=== PATIENT | female | born 1995 | race Caucasian/White ===

== ENCOUNTER 2017-05-19 09:44 | Emergency (ER) | payer BC ==
[~2017-05-19] VITALS: Ht 154.9 cm; Wt 66.5 kg
[~2017-05-19 09:44] MED LIST: ALBUAER19 INH; BCPILLS PO; CLR10 PO
[2017-05-19 09:53] VITALS: Ht 154.9 cm; Wt 66.5 kg
[2017-05-19] MEDS ORDERED: SODIUM CHLORIDE 0.9% 1000ML 1,000 ML IV STA ×3 (10:11→13:13)
[2017-05-19] MEDS ORDERED: ONDANSETRON 8 MG/54 ML D5W IV STA (10:19)
[2017-05-19] MEDS ORDERED: ONDANSETRON INJ 2 MG/ML 2 ML VIAL IV STA (10:21)
[2017-05-19 10:31] LABS: BASO % 0.1 %; BASO ABS # 0.01 K/uL (0-0.2); COMPLETE YES; EOS % 1.7 %; HEMATOCRIT 41.3 % (37-47); IG% 0.2 %; LYMPH % 6.2 %; LYMPH ABS # 0.61 K/uL (1.2-3.4); MEAN CELL VOLUME 91.4 fL (80-100); MEAN CORPUSCULAR HEMOGLOBIN 31.4 pg (25-34); MEAN CORPUSCULAR HGB CONC 34.4 g/dl (32-36); MONO % 6.7 %; NEUT % 85.1 %; PLATELET COUNT 240 K/uL (130-400); RED BLOOD COUNT 4.52 M/uL (4.2-5.4); WHITE BLOOD COUNT 9.86 K/uL (4.8-10.8)
[2017-05-19 10:53] LABS: BUN/CREATININE RATIO 17.7 (10-20); CALCIUM 9.1 mg/dl (8.5-10.1); CREATININE 0.67 mg/dl (0.60-1.20); POTASSIUM 3.5 mmol/L (3.5-5.1)
[2017-05-19 10:56] LABS: PREG INTERNAL NEGATIVE QC NEG CLEAR BACKGROUND; PREG INTERNAL POSITIVE QC POS CONTROL LINE
[2017-05-19 11:14] LABS: URINE APPEARANCE CLEAR (CLEAR); URINE BILIRUBIN NEG (NEG); URINE COLOR YELLOW; URINE NITRITE NEG (NEG); URINE SPECIFIC GRAVITY 1.023 (1.000-1.030); UROBILINOGEN NEG (NEG); ZZUR CULT IF INDIC CLEAN CATCH NO
[2017-05-19] MEDS ORDERED: ACETAMINOPHEN 500 MG TAB PO STA (11:18)
[2017-05-19 11:24] LABS: MANUAL MICROSCOPIC REQUIRED? NO; REVIEW REQ? NO
[2017-05-19] MEDS ORDERED: ONDA4TAB46 PO (11:29)
[2017-05-19] MEDS ORDERED: PRVHFAIN INH (11:29)
[2017-05-19 12:45] VITALS: TEMP 37.3
[2017-05-19 15:14] VITALS: BP 101/60; PULSE 106; O2SAT 98
--- NOTE | 2017-05-19 17:08 | EMERGENCY ROOM VISIT NOTE ---
History Report prepared by Mohit: B[place] Under the Supervision of: Dr. Oh Jameson M.D. First contact with patient: 10:11 Chief Complaint: GI ASSESSMENT Stated Complaint: THROWING UP,DIARRHEA,BLOOD IN STOOL History of Present Illness The patient is a 21 year old female who presents to the Emergency Room with complaints of a worsening illness that started last night. The patient is noted to be shaking due to being nervous. She says that she has had episodes of vomiting and diarrhea, and the diarrhea became bloody this morning. The patient notes that she last vomited this morning around 8 hours ago. She says that she is not in pain but she adds that she is very nauseous. The patient states that she took her prescribed anti-nausea medication around 2 hours ago. She says that she has not eaten anything unusual recently, and she has no known recent sick contacts. Pt denies LOC, headache, fevers, chills, diaphoresis, visual changes, neck pain, chest pain, breathing difficulties, abdominal pain, back pain, melena, urinary symptoms, numbness, weakness, lymphadenopathy, rash, or other complaints. Source of History: patient Onset: Last night Position: other (global - illness) Timing: worsening Modifying Factors (Relieving): other (anti-nausea medication) Associated Symptoms: + nausea, + vomiting, + hematochezia, + diarrhea Note: Associated symptoms: Shaking. Review of Systems See HPI for pertinent positives and negatives. A total of ten systems were reviewed and were otherwise negative. Past Medical & Surgical Medical Problems: (1) Asthma (2) Bronchitis (3) Pneumonia (4) Stomach problems Surgical Problems: (1) S/P wisdom tooth extraction Family History Hypertension Social History Smoking Status: Never Smoker Alcohol Use: none Marital Status: in relationship Housing Status: lives with significant other Occupation Status: [employer] student Current/Historical Medications Scheduled Control Pills ( Control Pills), 1 TAB PO DAILY Loratadine (Claritin), 10 MG PO DAILY Scheduled PRN Albuterol (Ventolin Hfa), 2 PUFFS INH Q4 PRN for Shortness of Breath Ondansetron Hcl (Zofran), 4 MG PO Q6 PRN for Nausea Allergies Coded Allergies: Cephalexin (Unverified Allergy, Severe, BREAKOUT, 05/19/17) Physical Exam Vital Signs Date Time Temp Pulse Resp B/P (MAP) Pulse Ox O2 Delivery O2 Flow Rate FiO2 05/19/17 15:14 106 101/60 98 05/19/17 14:04 91 05/19/17 12:45 37.3 100 18 103/51 100 Room Air 05/19/17 11:12 38.0 101 16 98/53 05/19/17 10:24 99 05/19/17 09:53 36.8 106 20 119/73 96 Room Air Physical Exam GENERAL: Awake, alert, anxious-appearing, in no distress HENT: Normocephalic, atraumatic. Oropharynx unremarkable. EYES: Normal conjunctiva. Sclera non-icteric. NECK: Supple. No nuchal rigidity. FROM. No JVD. RESPIRATORY: Clear to auscultation. CARDIAC: Regular rate, normal rhythm. Extremities warm and well perfused. Pulses equal. ABDOMEN: Soft, non-distended. No tenderness to palpation. No rebound or guarding. No masses. RECTAL: Deferred. MUSCULOSKELETAL: Chest examination reveals no tenderness. The back is symmetrical on inspection without obvious abnormality. There is no CVA tenderness to palpation. No joint edema. LOWER EXTREMITIES: Calves are equal size bilaterally and non-tender. No edema. No discoloration. NEURO: Normal sensorium. No sensory or motor deficits noted. SKIN: No rash or jaundice noted. Medical Decision & Procedures Laboratory Results 05/19/17 10:10 Red Blood Count 4.52, Mean Corpuscular Volume 91.4, Mean Corpuscular Hemoglobin 31.4, Mean Corpuscular Hemoglobin Concent 34.4, Mean Platelet Volume 10.0, Neutrophils (%) (Auto) 85.1, Lymphocytes (%) (Auto) 6.2, Monocytes (%) (Auto) 6.7, Eosinophils (%) (Auto) 1.7, Basophils (%) (Auto) 0.1, Neutrophils # (Auto) 8.39, Lymphocytes # (Auto) 0.61, Monocytes # (Auto) 0.66, Eosinophils # (Auto) 0.17, Basophils # (Auto) 0.01 05/19/17 10:10 Test 05/19/17 10:10 05/19/17 10:55 White Blood Count 9.86 K/uL (4.8-10.8) Red Blood Count 4.52 M/uL (4.2-5.4) Hemoglobin 14.2 g/dL (12.0-16.0) Hematocrit 41.3 % (37-47) Mean Corpuscular Volume 91.4 fL (80-100) Mean Corpuscular Hemoglobin 31.4 pg (25-34) Mean Corpuscular Hemoglobin Concent 34.4 g/dl (32-36) Platelet Count 240 K/uL (130-400) Mean Platelet Volume 10.0 fL (7.4-10.4) Neutrophils (%) (Auto) 85.1 % Lymphocytes (%) (Auto) 6.2 % Monocytes (%) (Auto) 6.7 % Eosinophils (%) (Auto) 1.7 % Basophils (%) (Auto) 0.1 % Neutrophils # (Auto) 8.39 K/uL (1.4-6.5) Lymphocytes # (Auto) 0.61 K/uL (1.2-3.4) Monocytes # (Auto) 0.66 K/uL (0.11-0.59) Eosinophils # (Auto) 0.17 K/uL (0-0.5) Basophils # (Auto) 0.01 K/uL (0-0.2) RDW Standard Deviation 42.3 fL (36.4-46.3) RDW Coefficient of Variation 12.7 % (11.5-14.5) Immature Granulocyte % (Auto) 0.2 % Immature Granulocyte # (Auto) 0.02 K/uL (0.00-0.02) Anion Gap 10.0 mmol/L (3-11) Est Creatinine Clear Calc Drug Dose 113.9 ml/min Estimated GFR () 143.6 Estimated GFR (Non- 123.9 BUN/Creatinine Ratio 17.7 (10-20) Calcium Level 9.1 mg/dl (8.5-10.1) Total Bilirubin 1.0 mg/dl (0.2-1) Direct Bilirubin 0.2 mg/dl (0-0.2) Aspartate Amino Transf (AST/SGOT) 14 U/L (15-37) Alanine Aminotransferase (ALT/SGPT) 19 U/L (12-78) Alkaline Phosphatase 56 U/L (45-117) Total Protein 8.0 gm/dl (6.4-8.2) Albumin 4.2 gm/dl (3.4-5.0) Lipase 74 U/L (73-393) Human Chorionic Gonadotropin, Qual NEG (NEG) Urine Color YELLOW Urine Appearance CLEAR (CLEAR) Urine pH 5.0 (4.5-7.5) Urine Specific [place] 1.023 (1.000-1.030) Urine Protein NEG (NEG) Urine Glucose (UA) NEG (NEG) Urine Ketones 2+ (NEG) Urine Occult Blood NEG (NEG) Urine Nitrite NEG (NEG) Urine Bilirubin NEG (NEG) Urine Urobilinogen NEG (NEG) Urine Leukocyte Esterase NEG (NEG) Date/Time Source Procedure Growth Status 05/19/17 10:55 Stool C.difficile Toxin B Gene (PCR) - Final No C. difficile toxin B gene detected Complete Laboratory results reviewed by me Medications Administered Medications (Trade) Dose Ordered Sig/Rodri Route Start Time Stop Time Status Last Admin Dose Admin Sodium Chloride 1,000 ml @ 125 mls/hr Q8H STAT IV 05/19/17 10:11 05/19/17 15:37 DC 05/19/17 11:16 125 MLS/HR Sodium Chloride 1,000 ml @ 999 mls/hr Q1H1M STAT IV 05/19/17 10:11 05/19/17 11:11 DC 05/19/17 10:19 999 MLS/HR Ondansetron HCl (Zofran Inj) 4 mg NOW STAT IV 05/19/17 10:21 05/19/17 10:22 DC 05/19/17 10:29 4 MG Acetaminophen (Tylenol Tab) 1,000 mg NOW STAT PO 05/19/17 11:18 05/19/17 11:19 DC 05/19/17 11:26 1,000 MG Sodium Chloride 1,000 ml @ 999 mls/hr Q1H1M STAT IV 05/19/17 13:13 05/19/17 14:13 DC 05/19/17 13:16 999 MLS/HR ED Course 1011: Ordered NSS 1000 ml @ 999 mls/hr IV, NSS 1000 ml 125 mls/hr IV. 1018: The patient was evaluated in room B8. A complete history and physical exam was performed. 1021: Ordered Zofran Inj 4 mg IV. 1118: Ordered Tylenol Tab 1000 mg PO. 1123: I reevaluated the patient and she is doing well. She is updated. 1418: I discussed the patient with Dr. Mehul STERLING GI - he recommended outpatient follow-up. 1440: I reevaluated the patient and she is feeling well and will follow-up in the office. Discussed results and discharge instructions: she verbalized understanding and agreement. The patient is ready for discharge. Medical Decision Triage Nursing notes reviewed. The patient's presentation and history were concerning for vomiting, diarrhea and bloody stool. Etiologies such as gastroenteritis, food borne illness, infectious diarrhea, infections, obstruction, pancreatitis, appendicitis, diverticulitis, inflammatory bowel disease, GI bleed, biliary pathology, toxicologic as well as others were entertained. The patient was evaluated. She was doing relatively well. She was somewhat anxious but had a benign abdominal examination. Blood work was obtained. The patient was hydrated. She was given IV Zofran. She felt much better with this. The patient had no further vomiting. She did have a stool sample obtained and this was sent. Negative for C. difficile. Culture pending. The patient had an unremarkable CBC, chemistry panel, LFTs, and lipase. She is not . Her urinalysis is unremarkable. The patient was hydrated. She received 2 L of normal saline. She is doing well with this. I discussed conservative management with her and close outpatient follow-up. Stool culture results will dictate the need for further treatment at this point in time. The patient is doing very well clinically. I did consult with gastroenterology who agreed with follow-up in the office.I gave my usual and customary discussion regarding this issue. By the evaluation outlined above other emergent etiologies such as those listed in the differential, as well as others, were deemed relatively unlikely. The patient was educated about the findings as listed above. All questions were answered and the patient was pleased with the treatment. Return instructions were outlined and the patient was discharged in stable condition. The patient was referred to GI for follow-up for a recheck of the current condition. Medication Reconcilliation Current Medication List: was personally reviewed by me Blood Pressure Screening Patient's blood pressure: Normal blood pressure Consults Time Called: 1415 Consulting Physician: Dr. Mehul YOON Returned Call: 1418 I discussed the patient with Dr. Mehul STERLING GI - he recommended outpatient follow-up. Impression Primary Impression: Diarrhea Additional Impression: Hematochezia Scribe Attestation The scribe's documentation has been prepared under my direction and personally reviewed by me in its entirety. I confirm that the note above accurately reflects all work, treatment, procedures, and medical decision making performed by me. Departure Information Dispostion Home / Self-Care Referrals Nya Bishop D.O. (PCP) Dilip Andrade MD Patient Instructions [facility] Additional Instructions A stool culture is pending. You should he results from the Emergency Room within 48 hours. If you do not call back to [phone] for results. Ibuprofen(Motrin, Advil) may be used for fever or pain. Use 600mg every six hours as needed. Take with food. Avoid using more than 2400mg in a 24 hour period. Do not use 2400mg per day for more than three consecutive days without physician direction. Prolonged inappropriate use can lead to stomach upset or ulcers. (AND/OR) Acetaminophen(Tylenol) may be used for fever or pain. Use 1000mg every six hours as needed. Avoid using more than 4000mg in a 24 hour period. Continue your Zofran. Rest and drink plenty of fluids as tolerated. Slow sips of water or sports drinks are recommended instead of large amounts all at once. Continue current medications. Once your stomach is settled start with a clear liquid diet (jello, soup broth, etc.) and then advance as tolerated. You should avoid full, heavy meals for about 24 hrs from the time your symptoms resolved. Return to the ER immediately for worsening or persistent abdominal pain, vomiting, fevers, chest pains, difficulty breathing, persistent bloody stools, worsening of your condition, or as needed. Follow up with your primary physician in 2-3 days for a recheck of your current condition. Call [facility] [address] gastroenterology on Saturday morning for a follow-up visit. Tell them you were referred from the Emergency Room. The number for the clinic is listed below under Dr. andrade. Problem Qualifiers
== END 2017-05-19 15:15 | disposition home or self-care (01) ==
LOC: C.EDB 09:46
DX: K92.1 Melena (principal); R19.7 Diarrhea, unspecified; J45.909 Unspecified asthma, uncomplicated; Z87.01 Personal history of pneumonia (recurrent); Z82.49 Family history of ischemic heart disease and other diseases of the circulatory system; Z79.3 Long term (current) use of hormonal contraceptives; Z79.899 Other long term (current) drug therapy

== ENCOUNTER 2017-11-01 12:20 | Emergency (ER) | payer BC ==
[~2017-11-01] VITALS: Ht 154.9 cm; Wt 65.3 kg
[~2017-11-01 12:20] MED LIST changes: -ALBUAER19 INH; +ONDA4TAB46 PO; +PRVHFAIN INH
[2017-11-01 12:23] VITALS: TEMP 36.8; Ht 154.9 cm; Wt 65.3 kg
[2017-11-01] MEDS ORDERED: ALBUT/IPRATROP 3MG/0.5MG NEB 3 ML VIAL ONE (12:30)
[2017-11-01] MEDS ORDERED: METHYLPREDNISOLONE 125 MG VIAL IV STA (12:31)
[2017-11-01] MEDS ORDERED: ALBUT/IPRATROP 3MG/0.5MG NEB 3 ML VIAL INH STA ×2 (12:31→13:36)
[2017-11-01] MEDS ORDERED: LORAZEPAM 2 MG/ML 1 ML VIAL IV STA (12:31)
--- NOTE | 2017-11-01 13:07 | DIAGNOSTIC IMAGING REPORT ---
CHEST ONE VIEW PORTABLE CLINICAL HISTORY: Shortness of breath. COMPARISON STUDY: Chest radiograph April 23, 2012. FINDINGS: Lung volumes are normal. There is no pneumothorax or pleural effusion. There is no consolidation or evidence for pulmonary edema. Cardiac size is normal. Mediastinal contours are normal. IMPRESSION: No acute cardiopulmonary findings. Electronically signed by: Dennis Taylor M.D. 11/01/2017 1:05 PM Dictated Date/Time: 11/01/2017 1:05 PM
[2017-11-01 13:13] LABS: HEMATOCRIT 42.6 % (37-47); MEAN CELL VOLUME 89.3 fL (80-100); MEAN CORPUSCULAR HEMOGLOBIN 31.4 pg (25-34); MEAN CORPUSCULAR HGB CONC 35.2 g/dl (32-36); MEAN PLATELET VOLUME 10.2 fL (7.4-10.4); PLATELET COUNT 311 K/uL (130-400); RED CELL DISTRIBUTION WIDTH CV 12.7 % (11.5-14.5); RED CELL DISTRIBUTION WIDTH SD 41.4 fL (36.4-46.3); WHITE BLOOD COUNT 10.17 K/uL (4.8-10.8)
[2017-11-01 13:32] LABS: CALCIUM 9.8 mg/dl (8.5-10.1); CREATININE 0.77 mg/dl (0.60-1.20); POTASSIUM 3.3 mmol/L (3.5-5.1)
[2017-11-01 13:39] LABS: INFLUENZA B ANTIGEN Neg for Influ B (NEG)
[2017-11-01 13:49] LABS: BASO % 0.2 %; BASO ABS # 0.02 K/uL (0-0.2); EOS % 2.8 %; EOS ABS # 0.28 K/uL (0-0.5); IG# 0.02 K/uL (0.00-0.02); LYMPH % 37.7 %; LYMPH ABS # 3.83 K/uL (1.2-3.4); MONO % 5.4 %; MONO ABS # 0.55 K/uL (0.11-0.59); NEUT % 53.7 %; NEUT ABS # 5.47 K/uL (1.4-6.5)
[2017-11-01] MEDS ORDERED: PRED50TA PO (14:51)
[2017-11-01] MEDS ORDERED: PRVHFAIN INH (15:26)
[2017-11-01 15:38] VITALS: BP 122/75; PULSE 88; O2SAT 98
--- NOTE | 2017-11-01 17:54 | EMERGENCY ROOM VISIT NOTE ---
History Report prepared by Mohit: Walter Higginbotham Under the Supervision of: Dr. Moncho Bates M.D. First contact with patient: 12:28 Chief Complaint: RESPIRATORY PROBLEMS Stated Complaint: ASTHMA ATTACK, CANT BREATH Nursing Triage Summary: triage note: Pt reports "i am having an asthma attack and i can't breathe." History of Present Illness The patient is a 22 year old female who presents to the Emergency Room with complaints of constant shortness of breath beginning a few hours ago. She has a history of asthma and feels that she is having an asthma attack. She has a rescue inhaler at home, but nothing has improved her symptoms. The patient also complains of a cough and chest pain. She notes that she had to be taken to the ICU as a child for asthma, but has never been in the ICU for breathing problems since. The patient denies recent travel. She is on control. She denies chance of . Source of History: patient Onset: A few hours ago Quality: other (shortness of breath) Timing: constant Modifying Factors (Relieving): other (none) Associated Symptoms: + cough, + chest pain Review of Systems See HPI for pertinent positives and negatives. A total of ten systems were reviewed and were otherwise negative. Past Medical & Surgical Medical Problems: (1) Asthma (2) Bronchitis (3) Pneumonia (4) Stomach problems Surgical Problems: (1) S/P wisdom tooth extraction Family History Hypertension Social History Smoking Status: Never Smoker Alcohol Use: none Marital Status: in relationship Housing Status: lives with significant other Occupation Status: [employer] student Current/Historical Medications Scheduled Albuterol (Ventolin Hfa), 2 PUFFS INH QID Control Pills ( Control Pills), 1 TAB PO DAILY Loratadine (Claritin), 10 MG PO DAILY Prednisone (Prednisone), 50 MG PO DAILY Scheduled PRN Albuterol (Ventolin Hfa), 2 PUFFS INH Q4 PRN for Shortness of Breath Allergies Coded Allergies: Cephalexin (Unverified Allergy, Severe, BREAKOUT, 11/01/17) Physical Exam Vital Signs Date Time Temp Pulse Resp B/P (MAP) Pulse Ox O2 Delivery O2 Flow Rate FiO2 11/01/17 15:38 88 20 122/75 98 11/01/17 13:48 118/74 11/01/17 13:45 101 17 97 11/01/17 13:35 116 21 99 11/01/17 13:25 98 26 97 11/01/17 13:20 122 16 11/01/17 12:50 130 39 100 11/01/17 12:41 127 11/01/17 12:23 36.8 119 38 137/89 97 Room Air Physical Exam Physical Exam GENERAL: She is oriented to person, place, and time. She appears well- developed and well-nourished. She appears anxious and distressed. Tachypneic. __ __ HENT: Exam performed. Head: Normocephalic and atraumatic. Right Ear: External ear normal. No mastoid tenderness. Left Ear: External ear normal. No mastoid tenderness. Mouth/Throat: The oropharynx is clear and moist. No trismus in the jaw. No dental abscesses or uvula swelling. No oropharyngeal exudate or tonsillar abscesses. ____ EYES: Conjunctivae and EOM are normal. Pupils are equal, round, and reactive to light. Right eye exhibits no discharge. Left eye exhibits no discharge. No scleral icterus. ____ NECK: Normal range of motion. Neck supple. No JVD present. No spinous process tenderness present. No carotid bruit present. No rigidity. No tracheal deviation and normal range of motion present. No Brudzinski's sign and no Kernig 's sign noted. ____ CV: Tachycardic rate, regular rhythm, normal heart sounds and intact distal pulses. There is no peripheral edema. Palpable radial pulses bue. ____ PULM/CHEST: Scant expiratory wheezes bilaterally. Tachypneic. No stridor. Chest Wall: She exhibits no tenderness. ____ ABD: The abdomen is soft. Bowel sounds are normal. She has no distension. No mass is present. There is no tenderness. There is no rebound, no guarding, no Gant's sign and no tenderness at McBurney's point. Rovsig negative MUSC/SKEL: Normal range of motion. There is no peripheral edema, tenderness or deformity. LYMPH: No cervical adenopathy. ____ NEURO: She is alert and oriented to person, place, and time. She has normal strength. No cranial nerve deficit or sensory deficit. Coordination and gait normal. GCS eye subscore is 4. GCS verbal subscore is 5. GCS motor subscore is 6. Cerebellar tests wnl. ____ SKIN: Skin is warm and dry. She is not diaphoretic. ____ PSYCH: She has a normal mood and affect. Her behavior is normal. Judgment and thought content normal. ____ Medical Decision & Procedures ER Provider Diagnostic Interpretation: Radiology results as stated below per my review and radiologist interpretation: CHEST ONE VIEW PORTABLE FINDINGS: Lung volumes are normal. There is no pneumothorax or pleural effusion. There is no consolidation or evidence for pulmonary edema. Cardiac size is normal. Mediastinal contours are normal. IMPRESSION: No acute cardiopulmonary findings. Electronically signed by: Dennis Taylor M.D. 11/01/2017 1:05 PM Laboratory Results 11/01/17 12:45 Red Blood Count 4.77, Mean Corpuscular Volume 89.3, Mean Corpuscular Hemoglobin 31.4, Mean Corpuscular Hemoglobin Concent 35.2, Mean Platelet Volume 10.2, Neutrophils (%) (Auto) 53.7, Lymphocytes (%) (Auto) 37.7, Monocytes (%) (Auto) 5.4, Eosinophils (%) (Auto) 2.8, Basophils (%) (Auto) 0.2, Neutrophils # (Auto) 5.47, Lymphocytes # (Auto) 3.83, Monocytes # (Auto) 0.55, Eosinophils # (Auto) 0.28, Basophils # (Auto) 0.02 11/01/17 12:45 Test 11/01/17 12:45 11/01/17 12:50 11/01/17 13:10 11/01/17 14:01 White Blood Count 10.17 K/uL (4.8-10.8) Red Blood Count 4.77 M/uL (4.2-5.4) Hemoglobin 15.0 g/dL (12.0-16.0) Hematocrit 42.6 % (37-47) Mean Corpuscular Volume 89.3 fL (80-100) Mean Corpuscular Hemoglobin 31.4 pg (25-34) Mean Corpuscular Hemoglobin Concent 35.2 g/dl (32-36) Platelet Count 311 K/uL (130-400) Mean Platelet Volume 10.2 fL (7.4-10.4) Neutrophils (%) (Auto) 53.7 % Lymphocytes (%) (Auto) 37.7 % Monocytes (%) (Auto) 5.4 % Eosinophils (%) (Auto) 2.8 % Basophils (%) (Auto) 0.2 % Neutrophils # (Auto) 5.47 K/uL (1.4-6.5) Lymphocytes # (Auto) 3.83 K/uL (1.2-3.4) Monocytes # (Auto) 0.55 K/uL (0.11-0.59) Eosinophils # (Auto) 0.28 K/uL (0-0.5) Basophils # (Auto) 0.02 K/uL (0-0.2) RDW Standard Deviation 41.4 fL (36.4-46.3) RDW Coefficient of Variation 12.7 % (11.5-14.5) Immature Granulocyte % (Auto) 0.2 % Immature Granulocyte # (Auto) 0.02 K/uL (0.00-0.02) Anion Gap 10.0 mmol/L (3-11) Est Creatinine Clear Calc Drug Dose 97.4 ml/min Estimated GFR () 125.3 Estimated GFR (Non- 108.1 BUN/Creatinine Ratio 21.6 (10-20) Calcium Level 9.8 mg/dl (8.5-10.1) Venous Blood pH 7.50 (7.36-7.41) Venous Blood Partial Pressure CO2 29 mmHg (38.0-50.0) Venous Blood Partial Pressure O2 30 mmHg Venous Blood HCO3 22 mmol/L Venous Blood Oxygen Saturation 62.3 % Venous Blood Base Excess -0.1 mEq/L Lactic Acid Level 2.4 mmol/L (0.4-2.0) Influenza Type A Antigen Neg for Influ A (NEG) Influenza Type B Antigen Neg for Influ B (NEG) D-Dimer 390 ug/L FEU (0-500) Laboratory results reviewed by me Medications Administered Medications (Trade) Dose Ordered Sig/Rodri Route Start Time Stop Time Status Last Admin Dose Admin Albuterol/ Ipratropium (Duoneb) 3 ml NOW STAT INH 11/01/17 12:31 11/01/17 12:33 DC 11/01/17 12:43 3 ML Lorazepam (Ativan Inj) 0.5 mg NOW STAT IV 11/01/17 12:31 11/01/17 12:33 DC 11/01/17 12:46 0.5 MG Methylprednisolone Sodium Succinate (Solu-Medrol IV) 125 mg NOW STAT IV 11/01/17 12:31 11/01/17 12:33 DC 11/01/17 12:46 125 MG Albuterol/ Ipratropium (Duoneb) 3 ml NOW STAT INH 11/01/17 13:36 11/01/17 13:37 DC 11/01/17 13:50 3 ML ECG Per My Interpretation Indication: SOB/dyspnea Rate (beats per minute): 92 Rhythm: sinus rhythm Findings: other ([place], QRS, and QTC intervals within normal limits. No ST elevation or depression.) ED Course 1229: The patient was evaluated in room C4. A complete history and physical exam was performed. 1231: Ordered Solu-Medrol 125 mg IV, Ativan Inj 0.5 mg IV, DuoNeb 3 mL INH. 1336: Ordered DuoNeb 3 mL INH. 1447: I reassessed the patient. Her breathing has improved and she is no longer wheezing s/p two breathing treatments. Peak flow greater than 300. Imaging within normal limits. D-dimer and labs within normal limits. Discharge with prescription of albuterol inhaler and prednisone. DISCHARGE - Plan of care discussed with patient and questions answered. The patient was given both verbal and printed discharge instructions. The patient verbalized understanding and ability to comply. The patient is to seek outpatient follow up as noted in the discharge instructions. The patient verbalized understanding and ability to comply. The patient is discharged in stable condition. The patient was instructed to return for worsening symptoms. Medical Decision Her breathing has improved and she is no longer wheezing s/p two breathing treatments. Peak flow greater than 300. Imaging within normal limits. D-dimer and labs within normal limits. Discharge with prescription of albuterol inhaler and prednisone. DISCHARGE - Plan of care discussed with patient and questions answered. The patient was given both verbal and printed discharge instructions. The patient verbalized understanding and ability to comply. The patient is to seek outpatient follow up as noted in the discharge instructions. The patient verbalized understanding and ability to comply. The patient is discharged in stable condition. The patient was instructed to return for worsening symptoms. Medication Reconcilliation Current Medication List: was personally reviewed by me Blood Pressure Screening Patient's blood pressure: Normal blood pressure Blood pressure disposition: Did not require urgent referral Impression Primary Impression: Asthma Scribe Attestation The scribe's documentation has been prepared under my direction and personally reviewed by me in its entirety. I confirm that the note above accurately reflects all work, treatment, procedures, and medical decision making performed by me. The chart was completed utilizing [employer] Speech voice recognition software. Grammatical errors, random word insertions, pronoun errors, and incomplete sentences are an occasional consequence of this system due to software limitations, ambient noise, and hardware issues. Any formal questions or concerns about the content, text, or information contained within the body of this dictation should be directly addressed to the physician for clarification. Departure Information Dispostion Home / Self-Care Prescriptions Albuterol (Ventolin Hfa) 60 Puffs/5400 Mcg Aers 2 PUFFS INH QID for 5 Days, #1 INHALER Prov: Moncho Bates M.D. 11/01/17 Prednisone (Prednisone) 50 Mg Tab 50 MG PO DAILY for 4 Days, #4 TAB Prov: Moncho Bates M.D. 11/01/17 Referrals Nya Bishop D.O. (PCP) Forms HOME CARE DOCUMENTATION FORM, IMPORTANT VISIT INFORMATION, WORK / SCHOOL INSTRUCTIONS Patient Instructions Asthma - [facility], [facility] Additional Instructions Return to the emergency department if you develop fever greater than 100.4, cough up blood, lose consciousness, have increased difficulty breathing or wheezing. Problem Qualifiers Primary Impression: Asthma Asthma severity: mild Asthma persistence: intermittent Asthma complication type: with acute exacerbation Qualified Codes: J45.21 - Mild intermittent asthma with (acute) exacerbation
== END 2017-11-01 15:40 | disposition home or self-care (01) ==
LOC: C.EDB 12:21 → C.EDC 15:40
DX: J45.21 Mild intermittent asthma with (acute) exacerbation (principal); Z87.09 Personal history of other diseases of the respiratory system; Z79.3 Long term (current) use of hormonal contraceptives; Z88.1 Allergy status to other antibiotic agents

== ENCOUNTER 2021-10-20 20:22 | Inpatient (IN) ==
[2021-10-20] MEDS ORDERED: OXYTOCIN 30 UNITS/500 ML BAG IV PRN (20:44)
--- NOTE | 2021-10-20 20:46 | History & Physical Report ---
Date of Service October 20, 2021 Assessment & Plan (1) with 37 weeks completed gestation: Plan: in labor, fetus category one. admit, epidural, then arom. anticipate . us--cephalic History of Present Illness Chief Complaint: Patient is a 26yowf with iup at37 1/7 week who presents to labor and delivery with contractions. Contractions started at 1pm to get stronger and more painful. no lof/vb. +fm. and Delivery Plans covid booster 05/2021 Need for Rhogam due to RH negative Mother *Rhogam given 08/17/21 OB Labs: Blood Type A Negative 03/31/21 Antibody Screen NEGATIVE 08/17/21 Hemoglobin 12.1 g/dL (12.0-16.0) 08/17/21 Hematocrit 36.5 % (37-47) L 08/17/21 Mean Corpuscular Volume 91.7 fL (80-100) 03/31/21 Platelet Count 275 K/uL (130-400) 03/31/21 Rubella IgG Antibody Immune (Immune) 03/31/21 Rapid Plasma Reagin Nonreactive (Nonreactive) 03/31/21 Hepatitis B Surface Antigen Neg (Neg) 03/31/21 HIV (1&2) Ab and P24 Ag, 4th Gener Neg (Neg) 03/31/21 Glucose 1 Hour 50 gm Load 108 mg/dl (70-130) 08/17/21 Maternal Serum Alpha Fetoprotein 43.3 ng/mL 05/29/21 OB Optional Labs: Chlamydia trachomatis RNA NOT DETECTED (NOT DETECTED) 03/31/21 Neisseria gonorrhoeae RNA NOT DETECTED (NOT DETECTED) 03/31/21 Alpha Fetoprotein Triple Screen SEE NOTE 05/29/21 Labs Reviewed: low risk cfdna neg cf/sma neg afp 28wk labs GBS negative--mln Primary Care Provider: Ruddy Villarreal MD Allergies Allergy/AdvReac Type Severity Reaction Status Date / Time cephalexin Allergy Severe Hives Verified 10/19/21 13:32 Home Medications Medication Instructions Recorded Confirmed Type albuterol sulfate 90 mcg/actuation 2 puff INHALATION Q4H PRN 11/25/18 10/19/21 History aerosol inhaler (Ventolin HFA) loratadine 10 mg tablet (Claritin) 10 mg PO HS 11/25/18 10/19/21 History pantoprazole 40 mg tablet,delayed 40 mg PO DAILY 08/10/20 10/19/21 History release prenat.vits,javy,ihw-busn-hltsd 1 tab PO DAILY 03/24/21 10/19/21 History Patient History Medical History Acid reflux Asthma Bronchitis Diarrhea Hematochezia Ovarian cyst Pneumonia Stomach problems Varicella vaccination Surgical History S/P dilatation and curettage [place] teeth extracted Family History Grandmother (Paternal) Diabetes Mother Hypertension Alcoholism Grandfather (Paternal) Kidney disease Grandmother (Maternal) Colorectal cancer Other No significant family history Denies family history of Ovarian cancer Prostate cancer Myocardial infarction Breast cancer Social History Smoking Status: Never smoker Second Hand Exposure: No; Hx Alcohol Use: Yes Hx Substance Use: No Preferred Language: Yoruba marital status: marital status details: Jason Garrett (29) [phone] Current Living Situation: Spouse Current Living Situation Comment: lives with spouse, dog, cat-spouse changing litter current occupational status: employed 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 Feels Safe at Home: Yes Childhood Exposure to Second-Hand Smoke: No Physical Exam Constitutional: WD/WN, vitals as above Gastrointestinal (Abdomen): soft, gravid, nt Psychiatric: A+Ox3, euthymic affect Genitourinary: cx--4/90/-2 toco--q3-4min efm--140s wtih mod variability, accels present, no decels Results & Data ([facility]) Vital Signs (Past 12 Hours) Vital Signs Pulse BP 10/20/21 20:33 116 H 131/66 Coding Level of Care Code None Diagnoses with 37 weeks completed gestation Z3A.37
[2021-10-20] MEDS: LACTATED RINGER'S 1,000 ML IV PRN ×2 (21:00→22:05)
[2021-10-20] MEDS ORDERED: BUTORPHANOL TARTRATE 1 MG/ML VIAL IV ONE (21:07)
[2021-10-20] MEDS ORDERED: ePHEDrine sulfate 50 MG/ML AMP ONE (21:23)
[2021-10-20] MEDS ORDERED: fentaNYL citrate 100 MCG/2 ML VIAL ONE (21:23)
[2021-10-20] MEDS ORDERED: SODIUM CHLORIDE 0.9% INJ 10 ML VIAL ONE (21:24)
[2021-10-20] MEDS ORDERED: fentaNYL 2MCG/ML ROPIVACAINE 1.25MG/ML 100 ML BAG EPI ONE (21:24)
[2021-10-20] MEDS ORDERED: BUPIVACAINE 0.25% 30 ML VIAL ONE (21:24)
[2021-10-20 21:26] LABS: Hematocrit (blood only) 36.2 % (37-47); Hemoglobin 12.3 g/dL (12.0-16.0); Mean Corpuscular Hemoglobin 31.8 pg (25-34); Mean Corpuscular Volume 93.5 fL (80-100); Mean Platelet Volume 10.2 fL (7.4-10.4); Platelet Count 208 K/uL (130-400); RDW Coefficient of Variation 13.4 % (11.5-14.5); RDW Standard Deviation 45.7 fL (36.4-46.3); Red Blood Count 3.87 M/uL (4.2-5.4); White Blood Count 13.23 K/uL (4.8-10.8)
[2021-10-20] MEDS ORDERED: ePHEDrine sulfate 50 MG/ML AMP IV PRN (21:59)
[2021-10-20] MEDS ORDERED: NALBUPHINE HCL INJ 10 MG/ML AMP IV PRN (21:59)
[2021-10-20] MEDS ORDERED: NALOXONE HCL 1 MG in SODIUM CHLORIDE 0.9% 1000ML 1,000 ML IV PRN (21:59)
[2021-10-20] MEDS ORDERED: diphenhydrAMINE 50 MG/ML VIAL IV PRN (21:59)
[2021-10-20] MEDS ORDERED: ONDANSETRON INJ 2 MG/ML 2 ML VIAL IV PRN (21:59)
[2021-10-20] MEDS ORDERED: NALOXONE HCL 0.4 MG/1 ML VIAL/CARP IV PRN (21:59)
[2021-10-20] MEDS ORDERED: fentaNYL 2MCG/ML ROPIVACAINE 1.25MG/ML 100 ML BAG EPI PRN (21:59)
--- NOTE | 2021-10-20 22:07 | Anesthesiology Consultation ---
Date of Service October 20, 2021 Assessment & Plan Chart Review Chart Review: Patient NOT seen in Pre Admission Testing and Acceptable Risk for Labor Epidural Consults Requested none ASA ASA2 Proposed Anesthesia Anesthesia Type: Labor Epidural and CSE Risk / Benefits Reviewed With: PT / POA / Parent / Guardian, Accepts Plan and Informed Consent Obtained History Height/Weight Height: 5 ft 1 in Weight: 86.183 kg Allergies Allergy/AdvReac Type Severity Reaction Status Date / Time cephalexin Allergy Severe Hives Verified 10/19/21 13:32 Medications Home Medications Medication Instructions Recorded Confirmed Last Taken albuterol sulfate 90 mcg/actuation 2 puff INHALATION Q4H PRN 11/25/18 10/20/21 10/19/21 08:00 aerosol inhaler (Ventolin HFA) loratadine 10 mg tablet (Claritin) 10 mg PO HS 11/25/18 10/20/21 10/19/21 08:00 pantoprazole 40 mg tablet,delayed 40 mg PO DAILY 08/10/20 10/20/21 10/19/21 08:00 release prenat.vits,javy,kel-ylna-qhrmm 1 tab PO DAILY 03/24/21 10/20/21 10/19/21 08:00 Active Medications Generic Name Dose Route Start Last Admin Trade Name Freq PRN Reason Stop Dose Admin Lactated Ringer's 1,000 mls @ 125 mls/hr 10/20/21 20:44 10/20/21 22:05 Lr IV 10/22/21 20:43 125 mls/hr .Q8H PRN Administration L&D Protocol Protocol NPO Date Last Intake of Fluids: 10/20/21 Time Last Intake of Fluids: 21:00 Date Last Intake of Solids: 10/20/21 Time Last Intake of Solids: 12:00 Past Medical History Medical History Acid reflux Asthma Bronchitis Diarrhea Hematochezia Ovarian cyst Pneumonia Stomach problems Varicella vaccination Exercise / Class Metabolic Activity II 4-5 Yardwork/Stairs/Walk up hill Past Family History Family History Grandmother (Paternal) Diabetes Mother Hypertension Alcoholism Grandfather (Paternal) Kidney disease Grandmother (Maternal) Colorectal cancer Other No significant family history Denies family history of Ovarian cancer Prostate cancer Myocardial infarction Breast cancer Past Surgical History Surgical History S/P dilatation and curettage [place] teeth extracted Past Anesthesia History No Hx of Anesthesia Complications and No Family Hx of Anesthesia Complications History of PONV No Hx of PONV and No Hx of Motion Sickness Social History Smoking Status: Never smoker Hx Alcohol Use: No Hx Substance Use: No Review of Systems no chest pain or sob Physical Exam Vital Signs Last Vital Signs Temp 36.6 C 10/20/21 21:55 Pulse 105 H 10/20/21 22:04 Resp 18 10/20/21 21:55 BP 131/66 10/20/21 20:33 Pulse Ox 94 10/20/21 22:04 ENMT Mouth: no TMJ abnormality Thyromental Distance: > or= 3.5 Finger Breadths Mallampati Class: II Neck normal visual inspection Respiratory normal respiratory effort Auscultation: lungs clear to auscultation bilaterally Cardiovascular Rate/Rhythm: regular rate and regular rhythm Musculoskeletal Spine: normal cervical ROM Neurologic moves all extremities Psychiatric Orientation: alert and oriented x 3 Testing Laboratory Results 10/20/21 21:12
--- NOTE | 2021-10-20 22:43 | Labor Progress Brief Note ---
Date of Service October 20, 2021 Subjective comfortable with epidural Assessment & Plan (1) with 37 weeks completed gestation: Plan: laboring, comfortable, expectant management, fetus category one. Admission and Anticipated Discharge Date Admission Date: October 20, 2021 Physical Exam 2 Physical Exam: cx--7/100/0 no palpable bag toco--q2-4min efm--130s wtih mod variability, +accels, no decels Results & Data ([facility]) Vital Signs (Past 12 Hours) Vital Signs Temp Pulse Resp BP Pulse Ox 10/20/21 22:38 105 H 95 10/20/21 22:33 100 H 96 10/20/21 22:28 104 H 97 10/20/21 22:25 101 H 133/68 10/20/21 22:23 100 H 127/68 95 10/20/21 22:20 98 H 136/66 10/20/21 22:18 116 H 97 10/20/21 22:13 131 H 98 10/20/21 22:10 122 H 93 10/20/21 22:08 110 H 20 97 10/20/21 22:04 105 H 94 10/20/21 22:03 110 H 99 10/20/21 21:58 118 H 99 10/20/21 21:55 36.6 C 18 10/20/21 21:53 103 H 92 10/20/21 21:52 98 H 88 L 10/20/21 20:42 18 10/20/21 20:33 116 H 131/66 Coding Level of Care Code None Diagnoses with 37 weeks completed gestation Z3A.37
--- NOTE | 2021-10-21 01:10 | Labor Progress Brief Note ---
Date of Service October 21, 2021 Subjective patient notes back pain and need to push Assessment & Plan (1) with 37 weeks completed gestation: Plan: will try to redose, fetus overall reassuring. Once more comfortable, plan to labor down and then push. anticipate . Admission and Anticipated Discharge Date Admission Date: October 20, 2021 Physical Exam Physical Exam: cx--ant lip/+1 toco--q2-3min efm--130s with mod variability, accels present, no decels Results & Data ([facility]) Vital Signs (Past 12 Hours) Vital Signs Temp Pulse Resp BP Pulse Ox 10/21/21 01:03 126 H 97 10/21/21 00:58 126 H 98 10/21/21 00:56 123 H 131/65 10/21/21 00:53 123 H 98 10/21/21 00:48 134 H 97 10/21/21 00:43 117 H 96 10/21/21 00:42 116 H 132/63 10/21/21 00:38 114 H 95 10/21/21 00:33 132 H 96 10/21/21 00:32 36.6 C 20 10/21/21 00:28 126 H 96 10/21/21 00:27 130 H 159/83 H 10/21/21 00:23 106 H 95 10/21/21 00:22 99 H 92 10/21/21 00:18 97 H 96 10/21/21 00:14 97 H 94 10/21/21 00:13 105 H 96 10/21/21 00:12 94 H 144/68 H 10/21/21 00:08 96 H 95 10/21/21 00:07 97 H 94 10/21/21 00:03 92 H 96 10/20/21 23:58 94 H 96 10/20/21 23:57 90 141/66 H 10/20/21 23:53 96 H 95 10/20/21 23:48 106 H 95 10/20/21 23:43 108 H 131/60 95 10/20/21 23:38 107 H 98 10/20/21 23:33 105 H 18 96 10/20/21 23:28 105 H 96 10/20/21 23:26 103 H 117/59 L 10/20/21 23:23 116 H 97 10/20/21 23:18 121 H 98 10/20/21 23:13 109 H 99 10/20/21 23:08 92 H 97 10/20/21 23:03 93 H 96 10/20/21 23:00 18 10/20/21 22:58 103 H 97 10/20/21 22:56 102 H 123/68 10/20/21 22:55 96 H 131/69 10/20/21 22:53 91 H 96 10/20/21 22:48 111 H 97 10/20/21 22:45 18 10/20/21 22:43 106 H 98 10/20/21 22:40 18 10/20/21 22:38 105 H 95 10/20/21 22:35 18 10/20/21 22:33 100 H 96 10/20/21 22:30 18 10/20/21 22:28 104 H 97 10/20/21 22:25 101 H 18 133/68 10/20/21 22:23 100 H 127/68 95 10/20/21 22:20 98 H 18 136/66 10/20/21 22:18 116 H 97 10/20/21 22:13 131 H 98 10/20/21 22:10 122 H 93 10/20/21 22:08 110 H 20 97 10/20/21 22:04 105 H 94 10/20/21 22:03 110 H 99 10/20/21 21:58 118 H 99 10/20/21 21:55 36.6 C 18 10/20/21 21:53 103 H 92 10/20/21 21:52 98 H 88 L 10/20/21 20:42 18 10/20/21 20:33 116 H 131/66 Coding Level of Care Code None Diagnoses with 37 weeks completed gestation Z3A.37
[2021-10-21] MEDS ORDERED: BUPIVACAINE 0.25% 30 ML VIAL ONE (01:11)
[2021-10-21] MEDS ORDERED: fentaNYL citrate 100 MCG/2 ML VIAL ONE (01:24)
--- NOTE | 2021-10-21 02:18 | Labor Progress Brief Note ---
Date of Service October 21, 2021 Subjective comfortable after redose Assessment & Plan (1) with 37 weeks completed gestation: Plan: will labor down with peanut for 30 min and then start stage2. Fetus reassuring. anticipate . Admission and Anticipated Discharge Date Admission Date: October 20, 2021 Physical Exam Physical Exam: cx==c/c/+1 toco--q2-4 efm--140s with mod variability, accels present, variables with some contractions Results & Data ([facility]) Vital Signs (Past 12 Hours) Vital Signs Temp Pulse Resp BP Pulse Ox 10/21/21 02:13 97 H 95 10/21/21 02:12 98 H 133/68 10/21/21 02:08 100 H 95 10/21/21 02:04 100 H 93 10/21/21 02:03 105 H 98 10/21/21 02:01 18 10/21/21 01:58 87 96 10/21/21 01:57 88 132/62 10/21/21 01:53 89 96 10/21/21 01:48 87 95 10/21/21 01:43 90 96 10/21/21 01:42 85 135/69 10/21/21 01:38 94 H 95 10/21/21 01:35 103 H 94 10/21/21 01:33 114 H 96 10/21/21 01:30 111 H 134/80 10/21/21 01:28 125 H 92 10/21/21 01:23 140 H 99 10/21/21 01:18 134 H 98 10/21/21 01:13 136 H 98 10/21/21 01:11 121 H 143/73 H 10/21/21 01:08 141 H 98 10/21/21 01:03 126 H 97 10/21/21 01:00 36.6 C 20 10/21/21 00:58 126 H 98 10/21/21 00:56 123 H 131/65 10/21/21 00:53 123 H 98 10/21/21 00:48 134 H 97 10/21/21 00:43 117 H 96 10/21/21 00:42 116 H 132/63 10/21/21 00:38 114 H 95 10/21/21 00:33 132 H 96 10/21/21 00:32 36.6 C 20 10/21/21 00:28 126 H 96 10/21/21 00:27 130 H 159/83 H 10/21/21 00:23 106 H 95 10/21/21 00:22 99 H 92 10/21/21 00:18 97 H 96 10/21/21 00:14 97 H 94 10/21/21 00:13 105 H 96 10/21/21 00:12 94 H 144/68 H 10/21/21 00:08 96 H 95 10/21/21 00:07 97 H 94 10/21/21 00:03 92 H 96 10/20/21 23:58 94 H 96 10/20/21 23:57 90 141/66 H 10/20/21 23:53 96 H 95 10/20/21 23:48 106 H 95 10/20/21 23:43 108 H 131/60 95 10/20/21 23:38 107 H 98 10/20/21 23:33 105 H 18 96 10/20/21 23:28 105 H 96 10/20/21 23:26 103 H 117/59 L 10/20/21 23:23 116 H 97 10/20/21 23:18 121 H 98 10/20/21 23:13 109 H 99 10/20/21 23:08 92 H 97 10/20/21 23:03 93 H 96 10/20/21 23:00 18 10/20/21 22:58 103 H 97 10/20/21 22:56 102 H 123/68 10/20/21 22:55 96 H 131/69 10/20/21 22:53 91 H 96 10/20/21 22:48 111 H 97 10/20/21 22:45 18 10/20/21 22:43 106 H 98 10/20/21 22:40 18 10/20/21 22:38 105 H 95 10/20/21 22:35 18 10/20/21 22:33 100 H 96 10/20/21 22:30 18 10/20/21 22:28 104 H 97 10/20/21 22:25 101 H 18 133/68 10/20/21 22:23 100 H 127/68 95 10/20/21 22:20 98 H 18 136/66 10/20/21 22:18 116 H 97 10/20/21 22:13 131 H 98 10/20/21 22:10 122 H 93 10/20/21 22:08 110 H 20 97 10/20/21 22:04 105 H 94 10/20/21 22:03 110 H 99 10/20/21 21:58 118 H 99 10/20/21 21:55 36.6 C 18 10/20/21 21:53 103 H 92 10/20/21 21:52 98 H 88 L 10/20/21 20:42 18 10/20/21 20:33 116 H 131/66 Coding Level of Care Code None Diagnoses with 37 weeks completed gestation Z3A.37
[2021-10-21] MEDS ORDERED: OXYTOCIN 30 UNITS/500 ML BAG IV PRN (03:56)
[2021-10-21] MEDS ORDERED: oxyCODONE/ACETAMINOPHEN 5mg/325mg TAB PO PRN (03:56)
[2021-10-21] MEDS ORDERED: BENZOCAINE 20% AER SPR 82.5 GM CAN EXT PRN (03:56)
[2021-10-21] MEDS ORDERED: ACETAMINOPHEN 325 MG TAB PO PRN (03:56)
[2021-10-21] MEDS ORDERED: DIPHTHERIA/TETANUS/PERTUSSIS 0.5 ML SYR/VIAL IM ONE (03:56)
[2021-10-21] MEDS ORDERED: HYDROCORTISONE ACETATE 25 MG SUPP PR PRN (03:56)
--- NOTE | 2021-10-21 04:00 | Delivery Summary ---
Vaginal Delivery Summary Date of Service October 21, 2021 Vaginal Delivery Summary and 2nd Degree LAC Pre-operative Diagnosis: at 37 weeks active labor Post-operative Diagnosis: same Procedure: epidural srom second degree laceration repair EBL: 300cc Anesthesia: epidural Procedure: The patient pushed for about one hour to deliver a viable female in lop position. The nose and mouth were bulb suctioned on the perineum and the rest of the was then delivered without difficulty. The baby was vigorous. The nose and mouth were again bulb suctioned and the infant was placed in the maternal abdomen for drying and attention. Cord was clamped and cut at one minute of life. Cord blood and segment obtained. Placenta delivered spontaneous, intact with a three vessel cord. Cervix/sulci/rectum were intact. A second degree perineal laceration was repaired in the normal standard fashion. Hemostasis obtained with dilute pitocin and fundal massage. Apgars were 8/9. Mother and baby doing well at the end of the delivery. [facility] Vaginal Delivery Charge Delivery Type Details: and 2nd Degree LAC
[2021-10-21] MEDS: PRENATAL VITAMIN 1 TAB PO SCH (07:23)
[2021-10-21] MEDS: DOCUSATE SODIUM 100 MG CAP PO SCH ×2 (07:23→20:51)
--- NOTE | 2021-10-21 07:51 | Anesthesia Procedure Note ---
Date of Service October 21, 2021 Anesthesia Post Epidural Note Vital Signs Vital Signs: Temp Pulse Resp BP Pulse Ox 97.9 F 106 H 18 103/60 93 10/21/21 03:55 10/21/21 07:40 10/21/21 05:25 10/21/21 07:40 10/21/21 03:40 Notes Mental Status: alert / awake / arousable and participated in evaluation Nausea / Vomiting: adequately controlled Pain: adequately controlled Airway Patency, RR, SpO2: stable & adequate BP & HR: stable & adequate Hydration State: stable & adequate Neuraxial Anesthesia: was administered and sensory block is resolving Anesthetic Complications: no major complications apparent and Pt Satisfied with anesthetic care Epidural: Removed without complications and With tip intact
[2021-10-21] MEDS ORDERED: ONDANSETRON 4 MG OD TAB ONE (08:23)
[2021-10-21] MEDS: ONDANSETRON 4 MG OD TAB PO PRN (08:47)
[2021-10-21] MEDS: LORATADINE 10 MG TAB PO SCH (09:47)
[2021-10-21] MEDS: PANTOprazole 40 MG TAB PO SCH (09:48)
[2021-10-21] MEDS: IBUPROFEN 600 MG TAB PO PRN ×3 (09:48→23:17)
[2021-10-22] MEDS: CALCIUM CARBONATE 500 MG CHEWABLE TAB PO PRN ×2 (06:50→19:30)
[2021-10-22] MEDS: DOCUSATE SODIUM 100 MG CAP PO SCH ×2 (07:49→20:32)
[2021-10-22] MEDS: PRENATAL VITAMIN 1 TAB PO SCH (07:49)
[2021-10-22] MEDS ORDERED: diphenhydrAMINE Capsule 25 MG CAP PO ONE ×2 (07:56→08:20)
[2021-10-22 08:02] LABS: Hematocrit (blood only) 32.4 % (37-47); Hemoglobin 10.7 g/dL (12.0-16.0)
[2021-10-22] MEDS: LORATADINE 10 MG TAB PO SCH (08:12)
[2021-10-22] MEDS: PANTOprazole 40 MG TAB PO SCH (08:12)
--- NOTE | 2021-10-22 08:15 | Obstetrical Progress Note ---
Date of Service October 22, 2021 Assessment & Plan (1) state: 26 yo PP1 from , doing well -Meeting all pp milestones -A-/rubella immune/, baby Rh neg -pt feeling better with dad here now, just wants to sleep. Will order benadryl to help sleep, discussed ways to mitigate the anxiety with help from nursing here. Does have therapist that she has seen before, encouraged to reach out. Also discussed consideration for medication for anxiety -f/u 6 weeks for appt, may benefit from 1wk anxiety f/u. Continue routine pp care Subjective Ambulation: ambulating normally Voiding: no voiding problems Passing Gas:: Yes Diet Tolerance:: regular diet Lochia:: Small Feeding Type:: breast feeding Pain well managed with medication. Overnight had a panic attack due to feeling overwhelmed. Has some level of anxiety at baseline. She had told dad to go home so he could get sleep and manage the pets however she notes she became very anxious and overwhelmed about being able to take care of the baby when she was alone. Was not able to sleep overnight. Dad came back and pt felt much better but feels exhausted Review of Systems Denies fevers, chills, n/v, [place], CP, SOB Physical Exam Constitutional WD/WN, vitals as above no acute distress Respiratory normal respiratory effort, lungs clear to auscultation Cardiovascular RRR, no murmur, no edema Gastrointestinal (Abdomen) Percussion/Palpation: abdomen soft; abdomen nontender fundus firm at umbilicus and NT Musculoskeletal BLE symmetric, nonerythematous, nontender Results & Data ([facility]) Vital Signs (Past 12 Hours) Vital Signs Temp Pulse Resp BP 10/22/21 00:24 98.1 F 10/21/21 23:51 98.1 F 85 18 105/70 10/21/21 20:30 98.4 F 105 H 18 105/68
[2021-10-22] MEDS: IBUPROFEN 600 MG TAB PO PRN ×2 (09:05→14:59)
[2021-10-22] MEDS ORDERED: bisacodyL 5 MG TABEC PO SCH (20:00)
[2021-10-22] MEDS: ONDANSETRON 4 MG OD TAB PO PRN (22:39)
[2021-10-22] MEDS ORDERED: diphenhydrAMINE Capsule 25 MG CAP ONE (23:03)
--- NOTE | 2021-10-22 23:17 | Communication Note ---
Date of Service: October 22, 2021 Nursing contacted me to say that pt has become more anxious as it got dark so I presented to room to meet with her. Pt thinks that she is starting to get anxious again because she remembers being so overwhelmed last night when she was alone after she sent her home to take care of their pets. She felt much better once her came back last night but still had difficulty sleeping. She was able to sleep during the day after getting benadryl and felt much better this afternoon. This evening started feeling a little nauseous again which is how her anxiety started last night. She thinks that it helps her to be able to step away to another room at home or go into the bathroom here if she starts getting anxious, but difficult to do while in the hospital. Denies SI/HI. Offered to see if baby could go to nursery for a bit to let her "have space" and she would like to see if that helps to mimic this. Will try benadryl to help sleep as well. Discussed that it may benefit her to start low dose zoloft in the hospital with her anxiety and f/u with her pcp and therapist outpt in short interval after discharge, she and would like to discuss this while they have the room to themselves and will let me know.
[2021-10-23] MEDS ORDERED: bisacodyL 10 MG SUPP PR PRN
--- NOTE | 2021-10-23 02:13 | Communication Note ---
Date of Service: October 23, 2021 nursing called me to inform me that pt had woken up with a panic attack. I presented to room and pt was sitting on the edge of the bed. She reports she w sunil up from sleeping with the panic attack, unsure what triggered it. She reports feeling a bit nauseous, her mind was racing as soon as she woke up and essentially could not get it to calm done. Denies thoughts of hurting herself or anyone else. Baby was in the nursery during this time. Feet were tapping on the ground and she was wringing her hands, appeared to feel very claustrophobic in her room. Offered to walk in the hallways with her and she desired to do this to get fresh air, which did resolve her nausea and fidgeting. Just feels overwhelmed by the whole process of labor and delivery. She was not sure if the pain medications that she required prior to delivery impacted/caused these panic attacks to begin, reassured her not the case. She is upset that this keeps happening, no obvious cause, reports she feels embarrassed by it. Discussed this is not something that she should be embarrassed about, not uncommon for underlying anxiety to worsen in the period. However, this seems to be pretty significant worsening per pt and her 's account. Discussed options w/ charge nurse and informed that there is a mental health liaison that could come up. They were contacted and also informed me that there could be an inpatient psych consult as well. Discussed these options w/ pt and and they were agreeable to both nursing liaison now with planned psych consult during the day today before discharge. Order placed, remained with pt and supportive during this time. Ample time given for questions, answered to apparent satisfaction
--- NOTE | 2021-10-23 08:00 | Obstetrical Progress Note ---
Date of Service October 23, 2021 Assessment & Plan (1) state: Plan: 26 yo PPD2 s/p at 37 2/7 weeks. -Continue routine care -Vitals reviewed- HDS, afebrile -A-, GBS-, Rubella immune. Baby is Rh negative. Rhogam received. -Encourage ambulation, regular diet -Pain control with ibuprofen, acetaminophen PRN -Encourage -D/c today w/ F/u in 6 weeks withOB (2) Panic attack: Plan: -psych consult for panic attacks, appreciate recommendations. -Until then continue to calm and direct pt when able -Reinforce she is doing well with baby Admission and Anticipated Discharge Date Admission Date: October 20, 2021 Supervising Physician Co-Signing Physician Notes Resident Physician Supervision Note: I was present with Dr. Mcdonough during the history and exam. I discussed the case with the resident and agree with the findings and plan as documented in the note. Any exceptions or clarifications are listed here: PP2 s/p . Meeting pp milestones. Since delivery has had development of panic attacks, primarily at night related to pt feeling overwhelmed about her ability to take care of baby as well as being frustrated with why she is feeling so overwhelmed. Overnight had significant one again but was able to get some sleep otherwise. Mental health nurse liaison did speak with her overnight and there is psych consult pending this AM. Once complete, still ok for d/c as obstetrically she is doing well. Will send message for check in this week Documented By: Bina Powell MD Subjective 26 yo PPD2 s/p at 37 2/7 weeks. Pt had multiple episodes of panic attacks through the past 24 hours. Pt is anxious at the time of interview, but is very pleasant. See Dr. Powell's communication note regarding overnight panic attack. Reports some baseline anxiety prior to , but not to this extent. Otherwise doing well and pt's partner is bottle feeding the baby. Eating and drinking. Has some nausea, but feels it is from her being worked up. Ambulating and voiding. Pain controlled. No other complaints at this time. Review of Systems Review of Systems: All systems reviewed & are unremarkable except as noted in HPI & below Physical Exam Physical Exam: General: Alert, oriented, no acute distress Cardiac: Regular rate and rhythm, normal S1, S2. No murmurs appreciated. Respiratory: Clear to auscultation b/l with good air flow entry, symmetric chest rise and fall. No wheezes or crackles. No increased work of breathing or accessory muscle use Abdomen: Soft, nontender, nondistended. Fundus firm and palpable at 2 cm below umbilicus. No guarding or rebound. Skin: No rashes or lesions Extremities: Warm, dry, well-perfused with capillary refill <2s b/l. No lower extremity edema, erythema or swelling. Negative Panfilo's sign b/l. Results & Data ([facility]) Vital Signs (Past 12 Hours) Vital Signs Temp Pulse Resp BP Pulse Ox 10/23/21 04:39 89 18 141/85 H 10/23/21 01:00 36.9 C 104 H 22 104/68 99 10/22/21 23:17 37.1 C 80 18 109/73 99 10/22/21 19:30 37.1 C 106 H 18 139/83 98
[2021-10-23] MEDS: PRENATAL VITAMIN 1 TAB PO SCH (08:07)
[2021-10-23] MEDS: DOCUSATE SODIUM 100 MG CAP PO SCH (08:07)
--- NOTE | 2021-10-23 10:07 | Psychiatric Consultation ---
Date of Consultation October 23, 2021 Impression / Recommendations Impression 26 yo female with worsening of BC peripartum (in form of panic), responds to Benadryl. No indication for inpatient level of care. (1) Panic attack: Benadryl prn panic/sleep declines SSRI, can encourage Zoloft if symptoms persist or worsen as outpatient, at that time could also check thyroid panel to rule out post thyroiditis/hyperthyroidism continue outpatient therapy recs reviewed with Dr. Mcdonough, agrees screening/recs adequate without full psychiatric exam. Psych History History of Present Illness Patient has been seen on 2 separate shifts by psych nurses. Feels better today, night is harder and also if left alone. Had several panic attacks peripartum. 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 Benadryl prn helps. Baby specific anxiety includes fear about being able to care for baby, guilty if would sleep through cry, etc. [place] post depression scale completed/on file. Allergies Allergy/AdvReac Type Severity Reaction Status Date / Time cephalexin Allergy Severe Hives Verified 10/19/21 13:32 Home Medications Medication Instructions Recorded Confirmed Type albuterol sulfate 90 mcg/actuation 2 puff INHALATION Q4H PRN 11/25/18 10/20/21 History aerosol inhaler (Ventolin HFA) loratadine 10 mg tablet (Claritin) 10 mg PO HS 11/25/18 10/20/21 History pantoprazole 40 mg tablet,delayed 40 mg PO DAILY 08/10/20 10/20/21 History release prenat.vits,javy,etg-deni-lkdsf 1 tab PO DAILY 03/24/21 10/20/21 History Personal History Beliefs That Will Affect Care: None Patient History Medical History Acid reflux Asthma Bronchitis Diarrhea Hematochezia Ovarian cyst Pneumonia Stomach problems Varicella vaccination Surgical History S/P dilatation and curettage [place] teeth extracted Family History Grandmother (Paternal) Diabetes Mother Hypertension Alcoholism Grandfather (Paternal) Kidney disease Grandmother (Maternal) Colorectal cancer Other No significant family history Denies family history of Ovarian cancer Prostate cancer Myocardial infarction Breast cancer Social History Smoking Status: Never smoker Second Hand Exposure: No; Hx Alcohol Use: No Hx Substance Use: No Preferred Language: Com[place]an Communication Ability: Effective Combat Systems Officer Required: No Beliefs That Will Affect Care: None marital status: marital status details: Jason Garrett (29) [phone] Current Living Situation: Spouse Current Living Situation Comment: lives with spouse, dog, cat-spouse changing litter current occupational status: employed 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 Feels Safe at Home: Yes Childhood Exposure to Second-Hand Smoke: No Assistive Devices: None Physical Exam Vital Signs (Past 24 Hours): Last Vital Signs Temp 36.3 C L 10/23/21 07:30 Pulse 88 10/23/21 07:30 Resp 18 10/23/21 07:30 BP 120/82 10/23/21 07:30 Pulse Ox 100 10/23/21 07:30 Results & Data (PSY) Medications Administered Benzocaine (Benzocaine 20% Aer Spr 82.5 Gm Can) 1 appln EXT PRN PRN PRN Reason: Perineal Discomfort Stop: 11/20/21 03:55 Last Admin: 10/21/21 07:23 Dose: 82.5 appln Documented by: [id number] Calcium Carbonate (Calcium Carbonate 500 Mg Chewable Tab) 1,500 mg PO 3XDQ4 PRN PRN Reason: Indigestion Stop: 11/21/21 06:38 Last Admin: 10/22/21 19:30 Dose: 1,000 mg Documented by: [id number] Admin: 10/22/21 06:50 Dose: 1,500 mg Documented by: [id number] Docusate Sodium (Docusate Sodium 100 Mg Cap) 100 mg PO DAILY@ KOLE Stop: 11/20/21 07:59 Last Admin: 10/23/21 08:07 Dose: 100 mg Documented by: [id number] Admin: 10/22/21 20:32 Dose: 100 mg Documented by: [id number] Admin: 10/22/21 07:49 Dose: 100 mg Documented by: [id number] Admin: 10/21/21 20:51 Dose: 100 mg Documented by: [id number] Admin: 10/21/21 07:23 Dose: 100 mg Documented by: [id number] Oxytocin (Pitocin) 30 units in 500 mls @ 333.333 mls/hr IV .Q1H30M PRN; Protocol PRN Reason: Bleeding Control Stop: 11/19/21 20:43 Last Admin: 10/21/21 03:49 Dose: 59.94 units/hr, 999 mls/hr Documented by: [id number] Cosigned by: [id number] Ibuprofen (Ibuprofen 600 Mg Tab) 600 mg PO Q4H PRN PRN Reason: Pain/[place]/Cramping/Fever Stop: 11/20/21 03:55 Last Admin: 10/22/21 14:59 Dose: 600 mg Documented by: [id number] Admin: 10/22/21 09:05 Dose: 600 mg Documented by: [id number] Admin: 10/21/21 23:17 Dose: 600 mg Documented by: [id number] Admin: 10/21/21 15:04 Dose: 600 mg Documented by: [id number] Admin: 10/21/21 09:48 Dose: 600 mg Documented by: [id number] Loratadine (Loratadine 10 Mg Tab) 10 mg PO [facility] Stop: 11/20/21 08:59 Last Admin: 10/22/21 08:12 Dose: 10 mg Documented by: [id number] Admin: 10/21/21 09:47 Dose: 10 mg Documented by: [id number] Ondansetron HCl (Ondansetron 4 Mg Od Tab) 4 mg PO Q4H PRN PRN Reason: Nausea And Vomiting Stop: 11/20/21 08:12 Last Admin: 10/22/21 22:39 Dose: 4 mg Documented by: [id number] Admin: 10/21/21 08:47 Dose: 4 mg Documented by: [id number] Pantoprazole Sodium (Pantoprazole 40 Mg Tab) [facility] [place] [facility] [place]: 11/20/21 08:59 Last Admin: 10/22/21 08:12 Dose: 40 mg Documented by: [id number] Admin: 10/21/21 09:48 Dose: 40 mg Documented by: [id number] Prenat Multivit/[place]/Iron/Folic Ac ( Vitamin 1 Tab) 1 tab PO DAILY@08 [facility] Stop: 11/20/21 07:59 Last Admin: 10/23/21 08:07 Dose: 1 tab Documented by: [id number] Admin: 10/22/21 07:49 Dose: 1 tab Documented by: [id number] Admin: 10/21/21 07:23 Dose: 1 tab Documented by: [id number] Coding Level of Care Code None Diagnoses Panic attack F41.0
[2021-10-23] MEDS: IBUPROFEN 600 MG TAB PO PRN (11:06)
== END 2021-10-23 15:15 | disposition home or self-care (01) | DRG 807 ==
LOC: OPB 20:22 → 4S1 20:29 → 4E2 10-21 09:03
DX: O99.62 Diseases of the digestive system complicating childbirth; F41.0 Panic disorder [episodic paroxysmal anxiety]; Z79.899 Other long term (current) drug therapy; Z88.1 Allergy status to other antibiotic agents; O70.1 Second degree perineal laceration during delivery; K21.9 Gastro-esophageal reflux disease without esophagitis; Z3A.37 37 weeks gestation of pregnancy; J45.909 Unspecified asthma, uncomplicated; Z37.0 Single live birth; O99.52 Diseases of the respiratory system complicating childbirth; Z67.91 Unspecified blood type, Rh negative; O99.345 Other mental disorders complicating the puerperium

== ENCOUNTER 2024-09-21 20:30 | Inpatient (IN) ==
[2024-09-21] MEDS ORDERED: LIDOCAINE 1% LOCAL 20 ML VIAL INFIL PRN (21:33)
--- NOTE | 2024-09-21 21:38 | Labor Progress Brief Note ---
Date of Service September 21, 2024 Subjective Patient arrives from home c/o contractions Q3-5m, painful. She also has small volume LOF. No VB, good FM. Assessment & Plan (1) Normal labor: Plan: Painful contractions and cervix 3cm, so admit in labor. Unclear if truly ruptured at this time; Group B Strep neg so no definitive testing done for ROM at this time as it would not change to management. Will want epidural on request. Physical Exam Genitourinary: FHT Cat 1 [place] Q2-4 Cervix 3/80/-2 Slight damp pad = nitrazine equivocal, no obvious LOF during cervical exam Results & Data Vital Signs (Past 12 Hours) Vital Signs Temp Pulse Resp BP 09/21/24 20:46 98.1 F 20 09/21/24 20:45 86 132/69 Coding Level of Care Code None Diagnoses Normal labor O80; Z37.9
[2024-09-21 22:18] LABS: Hematocrit (blood only) 36.6 % (37.0-47.0); Hemoglobin 12.7 g/dl (12.0-16.0); Mean Corpuscular Hgb Conc 34.7 g/dL (32.0-36.0); Mean Corpuscular Volume 92.2 fL (80.0-100.0); Mean Platelet Volume 10.7 fL (9.4-12.4); Platelet Count 217 K/uL (130-400); RDW Coefficient of Variation 12.8 % (11.5-14.5); RDW Standard Deviation 43.6 fL (36.4-46.3); Red Blood Count 3.97 M/uL (4.20-5.40); White Blood Count 9.57 K/ul (4.8-10.8)
[2024-09-21] MEDS ORDERED: BUPIVACAINE 0.25% PF 30 ML VIAL EPI PRN (22:56)
[2024-09-21] MEDS ORDERED: fentaNYL citrate PF 100 MCG/2 ML VIAL EPI PRN (22:56)
[2024-09-21] MEDS ORDERED: NALOXONE HCL 0.4 MG/1 ML VIAL/CARP IV PRN (22:56)
[2024-09-21] MEDS ORDERED: ROPIVACAINE 0.5% PF 5 MG/ML 20 ML VIAL EPI PRN (22:56)
[2024-09-21] MEDS ORDERED: SODIUM CHLORIDE 0.9% PF INJ 10 ML VIAL EPI PRN (22:56)
[2024-09-21] MEDS ORDERED: ePHEDrine sulfate 50 MG/ML AMP IV PRN (22:56)
[2024-09-21] MEDS ORDERED: NALOXONE HCL 1 MG in SODIUM CHLORIDE 0.9% 1,000 ML IV PRN (22:56)
[2024-09-21] MEDS ORDERED: fentANYL 2 MCG/ML BUPIVacaine 0.125%-NSS 100ML BAG EPI PRN (22:56)
[2024-09-21] MEDS ORDERED: diphenhydrAMINE 50 MG/ML VIAL IV PRN (22:56)
[2024-09-21] MEDS ORDERED: LIDOCAINE 2% MPF LOCAL 5 ML VIAL EPI PRN (22:56)
[2024-09-21] MEDS ORDERED: NALBUPHINE HCL INJ 10 MG/ML AMP IV PRN (22:56)
--- NOTE | 2024-09-21 22:56 | Anesthesiology Consultation ---
Date of Service September 21, 2024 Assessment & Plan Chart Review Chart Review: Patient NOT seen in Pre Admission Testing and Acceptable Risk for Labor Epidural Consults Requested none History Height/Weight Height: 5 ft 1 in Weight: 86.183 kg Allergies Allergy/AdvReac Type Severity Reaction Status Date / Time cephalexin Allergy Severe Hives Verified 09/18/24 15:15 Medications Home Medications Medication Instructions Recorded Confirmed Last Taken loratadine 10 mg tablet (Claritin) 10 mg PO HS 11/25/18 09/21/24 09/20/24 21:00 albuterol sulfate 90 mcg/actuation 2 puff inhalation Q4H PRN 09/06/22 09/21/24 Unknown aerosol inhaler (Ventolin HFA) Shortness Of Breath Or Wheezing #8.5 grams pantoprazole 40 mg tablet,delayed 40 mg PO QAM #90 tabs 11/05/23 09/21/24 09/21/24 09:00 release vits 75-iron 28 mg-folic pkg PO 02/04/24 09/18/24 09/20/24 21:00 acid 800 mcg-omega3 440 mg oral pack (One Daily ) ipratropium bromide 21 mcg (0.03 2 spray intranasal TID PRN 05/06/24 09/21/24 Unknown %) nasal spray postnasal drip #30 mL citalopram 10 mg tablet (Celexa) 10 mg PO QAM #90 tabs 05/27/24 09/21/24 09/21/24 09:00 azelastine 137 mcg (0.1 %) nasal See Rx Instructions .Route 09/21/24 09/21/24 Unknown spray .COMPLEX PRN Allergies beclomethasone dipropionate 80 2 inh inhalation BID PRN Asthma 09/21/24 09/21/24 Unknown mcg/actuation HFA breath activated aerosol (Qvar RediHaler) Past Medical History Medical History Anxiety with flying Endometrial polyp Generalized anxiety disorder Abnormal uterine bleeding (AUB) Acid reflux Ovarian cyst Asthma History of COVID-19 05/2022- sore throat, fatigue; resolved Seasonal allergies Anxiety History of pneumonia Panic attacks Hx, no recent issues Hematochezia ? remote hx Bronchitis Hx Past Family History Family History Grandmother (Paternal) Diabetes Mother Hypertension Alcoholism Grandfather (Paternal) Kidney disease Grandmother (Maternal) Colorectal cancer Father Parkinson's disease Other Cancer No significant family history Denies family history of Ovarian cancer Prostate cancer Myocardial infarction Breast cancer Past Surgical History Surgical History Hx laparoscopic cholecystectomy (04/10/22) Laparoscopic Cholecystectomy - Irving Torres DO History of esophagogastroduodenoscopy (EGD) Hx of colonoscopy S/P dilatation and curettage [place] teeth extracted Social History Smoking Status: Never smoker Do You Dip or Chew Tobacco: No Hx Alcohol Use: No alcohol intake frequency: a few times a month Hx Substance Use: No substance use type: does not use Physical Exam Vital Signs Last Vital Signs Temp 98.1 F 09/21/24 20:46 Pulse 86 09/21/24 20:45 Resp 20 09/21/24 20:46 BP 132/69 09/21/24 20:45 Testing Laboratory Results 09/21/24 21:41
[2024-09-21] MEDS: LACTATED RINGER'S 1,000 ML IV PRN (23:00)
[2024-09-21] MEDS: fentANYL 2 MCG/ML BUPIVacaine 0.125%-NSS 100ML BAG ONE (23:22)
[2024-09-21] MEDS: BUPIVACAINE 0.25% PF 30 ML VIAL ONE (23:23)
[2024-09-21] MEDS: LIDOCAINE 2%/EPINEPHRINE 1:200,000 20 ML PF ONE (23:23)
[2024-09-21] MEDS: fentaNYL citrate PF 100 MCG/2 ML VIAL ONE (23:25)
[2024-09-21] MEDS: SODIUM CHLORIDE 0.9% PF INJ 10 ML VIAL ONE (23:26)
[2024-09-22] MEDS: ePHEDrine sulfate 50 MG/ML AMP ONE (00:04)
[2024-09-22] MEDS: BUPIVACAINE 0.25% PF 30 ML VIAL EPI STA (00:04)
[2024-09-22] MEDS: SODIUM CHLORIDE 0.9% PF INJ 10 ML VIAL EPI STA (00:04)
[2024-09-22] MEDS: LIDOCAINE 2%/EPINEPHRINE 1:200,000 20 ML PF EPI STA (00:04)
[2024-09-22] MEDS: fentaNYL citrate PF 100 MCG/2 ML VIAL EPI STA (00:04)
[2024-09-22] MEDS: CALCIUM CARBONATE 500 MG CHEWABLE TAB PO PRN (03:46)
[2024-09-22 07:33] VITALS: O2SAT 97
[2024-09-22] MEDS: OXYTOCIN 30 UNITS/NSS 30 UNITS/500 ML BAG IV PRN (07:42)
--- NOTE | 2024-09-22 08:10 | Delivery Summary ---
Vaginal Delivery Summary Date of Service September 22, 2024 Vaginal Delivery Summary DIAGNOSES: 1. [place] intrauterine at 39w1d gestation. 2. Spontaneous onset of labor. 3. Group B Streptococcus negative. PROCEDURE: Spontaneous vaginal delivery and repair of second degree laceration. SURGEON: Zayda Siddiqi MD. HOLISTIC PULSER: Caridad Wesley MS4 QUANTITATIVE BLOOD LOSS: 154 mL. COMPLICATIONS: None. PLACENTA: Spontaneous and intact with a 3-vessel cord. DISPOSITION: Stable to labor and delivery. DESCRIPTION: The patient pushed well and brought the head to in OA position. The 's head was allowed to deliver with contraction force and no further active pushing, with the perineum protected during this time. There was no nuchal cord. The left shoulder was anterior. The shoulders and body delivered without any difficulty, and the was placed on the maternal abdomen. It was vigorous and moving all extremities, and making respiratory efforts. The cord was doubly clamped by the MD and then cut by the FOB. The placenta delivered spontaneously and was noted to be intact and with a 3VC. The cervix, vagina and perineum were examined and were found to have a second degree which was repaired with vicryl suture in the usual manner including a crown stitch to rebuild the perineal body. The fundus was firm and lochia minimal immediately after delivery. [facility] Vaginal Delivery Charge Vaginal Delivery Codes: 25706 global code for the antepartum, delivery, and post-
[2024-09-22] MEDS ORDERED: ALBUTEROL HFA 8 GM INHALER INH PRN (08:22)
[2024-09-22] MEDS ORDERED: HYDROCORTISONE ACETATE 25 MG SUPP PR PRN (08:22)
[2024-09-22] MEDS ORDERED: AZELASTINE HCL 0.1% NASAL 200 SPRAYS/27,400 MCG BTL PRN (08:22)
[2024-09-22] MEDS ORDERED: OXYTOCIN 30 UNITS/NSS 30 UNITS/500 ML BAG IV PRN (08:22)
[2024-09-22] MEDS ORDERED: bisacodyL 10 MG SUPP PR PRN (08:22)
[2024-09-22] MEDS ORDERED: oxyCODONE/ACETAMINOPHEN 5mg/325mg TAB PO PRN (08:22)
[2024-09-22] MEDS: DIPHTHER/TETAN/PERTUS Vaccine (Tdap, Adol/Adult) 0.5mL IM ONE (08:29)
[2024-09-22] MEDS ORDERED: IPRATROPIUM BROMIDE NASAL SPRAY 0.06% 15ML PRN (08:31)
[2024-09-22] MEDS ORDERED: FLUTICASONE FUROATE 200MCG 14 PUFFS/INHALER INH SCH (09:00)
[2024-09-22] MEDS: CITALOPRAM 20 MG TAB PO SCH (09:05)
[2024-09-22] MEDS: PANTOprazole 40 MG TAB PO SCH (09:05)
--- NOTE | 2024-09-22 09:52 | Anesthesia Procedure Note ---
Date of Service September 22, 2024 Anesthesia Post Epidural Note Vital Signs Vital Signs: Temp Pulse Resp BP Pulse Ox 36.8 C 83 20 107/69 97 09/22/24 06:16 09/22/24 09:39 09/22/24 09:08 09/22/24 09:39 09/22/24 07:41 Pain Intensity Abdomen: Pain Intensity: 6 Notes Mental Status: alert / awake / arousable and participated in evaluation Nausea / Vomiting: adequately controlled Pain: adequately controlled Airway Patency, RR, SpO2: stable & adequate BP & HR: stable & adequate Hydration State: stable & adequate Neuraxial Anesthesia: was administered and sensory block is resolving Anesthetic Complications: no major complications apparent and Pt Satisfied with anesthetic care Epidural: Removed without complications and With tip intact
[2024-09-22] MEDS ORDERED: Nursing to Pharmacy Communication SCH (10:15)
[2024-09-22] MEDS ORDERED: FLUTICASONE FUROATE 200MCG 14 PUFFS/INHALER INH PRN (10:25)
[2024-09-22] MEDS: BENZOCAINE 20% SPRY 85 APPLN/85 GM CAN EXT PRN (11:16)
[2024-09-22] MEDS: IBUPROFEN 600 MG TAB PO PRN (12:23)
[2024-09-22] MEDS: ACETAMINOPHEN 325 MG TAB PO PRN (19:22)
[2024-09-22] MEDS: DOCUSATE SODIUM 100 MG CAP PO SCH (20:23)
[2024-09-22] MEDS: LORATADINE 10 MG TAB PO SCH (21:52)
[2024-09-23 06:50] LABS: Hematocrit (blood only) 30.2 % (37.0-47.0); Hemoglobin 9.8 g/dl (12.0-16.0); Mean Corpuscular Hemoglobin 30.6 pg (25.0-34.0); Mean Corpuscular Hgb Conc 32.5 g/dL (32.0-36.0); Mean Corpuscular Volume 94.4 fL (80.0-100.0); Mean Platelet Volume 10.2 fL (9.4-12.4); Platelet Count 158 K/uL (130-400); RDW Coefficient of Variation 13.5 % (11.5-14.5); RDW Standard Deviation 46.5 fL (36.4-46.3); White Blood Count 8.42 K/ul (4.8-10.8)
--- NOTE | 2024-09-23 07:06 | Obstetrical Progress Note ---
Date of Service <Norma Bañuelos MD - Last Filed: 09/23/24 08:37> September 23, 2024 Assessment & Plan <Norma Bañuelos MD - Last Filed: 09/23/24 08:37> (1) care and examination: PPD#1 s/p at 39 wga: Stable. Rh- s/p rhogam at 28 weeks GBS neg, ri, vitals wnl, H/H stable Counseled on breast care if not Continue routine care, ambulation, diet as tolerated Plan for DC today after dose of Rhogam <Charline Hills DO - Last Filed: 09/23/24 08:47> (1) care and examination: Subjective <Norma Bañuelos MD - Last Filed: 09/23/24 08:37> Patient is a 29yo who is PPD#1 following at 39 weeks. Mild abd pain/cramping, well managed on analgesics Voiding w/o issue Tolerating meals Ambulating normally +passing gas, no BM yet Lochia minimal, diminishing Planning to bottlefeed. Constitutional: no fever, no chills or no sweats Respiratory: no dyspnea Cardiovascular: no chest pain, no palpitations or no calf pain Breast: no breast pain Gastrointestinal: no nausea or no vomiting Genitourinary (female): no dysuria Neurologic: no headache(s) no changes in vision, no headaches Physical Exam <Norma Bañuelos MD - Last Filed: 09/23/24 08:37> General: Alert, oriented. No acute distress. Cardiac: Regular rate and rhythm, no murmurs, rubs, or gallops. Respiratory: Clear to auscultation bilaterally. No increased work of breathing. Symmetrical chest rise. No respiratory distress. Abdomen: Soft, nontender, nondistended. Bowel sounds present. Uterus: Uterine fundus firm, nontender, palpable 1 cm below the umbilicus. Lower extremities: No lower extremity edema or swelling. No deep calf pain. Results & Data <Norma Bañuelos MD - Last Filed: 09/23/24 08:37> Vital Signs (Past 12 Hours) Vital Signs Temp Pulse Resp BP Pulse Ox O2 Del Method 09/23/24 03:00 36.5 C 81 14 102/66 97 Room Air 09/22/24 23:00 36.6 C 83 14 103/65 97 Room Air 09/22/24 19:15 36.5 C 87 16 105/67 97 Room Air Laboratory Results 09/23/24 05:46 Supervising Physician <Charline Hills DO - Last Filed: 09/23/24 08:47> Co-Signing Physician Notes Resident Physician Supervision Note: I was present with Dr. Bañuelos during the history and exam. I discussed the case with the resident and agree with the findings and plan as documented in the note. Any exceptions or clarifications are listed here: PPD#1 doing well. Desires DC home, reviewed discharge instructions. 6w followup PP. Documented By: Charline Hills DO Resident Activity Tracking <Norma Bañuelos MD - Last Filed: 09/23/24 08:37> Resident Involvement: Resident Care Provided Care Provided: Adult Hospital Medicine
[2024-09-23] MEDS: PRENATAL VITAMIN 1 TAB PO SCH (08:02)
[2024-09-23 08:24] VITALS: RESP 18; TEMP 97.5
[2024-09-23 10:34] VITALS: BP 102/67; PULSE 78
[2024-09-23] MEDS ORDERED: bisacodyL 5 MG TABEC PO SCH (20:00)
== END 2024-09-23 11:50 | disposition home or self-care (01) | DRG 807 ==
LOC: OPB 20:30 → 4S1 20:31 → 4E2 09-22 10:10